=== PATIENT | female | born 1985 | race Caucasian/White ===

== ENCOUNTER 2018-05-03 10:27 | Emergency (ER) | payer BC ==
[2018-05-03 10:41] VITALS: BP 104/68
--- NOTE | 2018-05-03 11:05 | UC ---
Throat Pain/Nasal Tj HPI - HPI Summary HPI Summary: 32 yr old female with no pmh no recent meds, no ABX recently presents with ear fullness b/l, mil dsore throat, nasal congestion, chest congestion x 1 week, no improvement. + chills, body aches, denies fever. feels "in chest", - History of Current Complaint Chief Complaint: UCGeneralIllness Stated Complaint: COUGH CONGESTION Time Seen by Provider: 05/03/18 10:55 Hx Obtained From: Patient Hx Last Menstrual Period: no period ?: No Onset/Duration: Sudden Onset, Lasting Weeks Severity: Moderate Pain Intensity: 7 Pain Scale Used: 0-10 Numeric Cough: Nonproductive Associated Signs & Symptoms: Positive: Sinus Discomfort. Negative: Wheezing, Hoarseness - Allergies/Home Medications Allergies/Adverse Reactions: Allergies Allergy/AdvReac Type Severity Reaction Status Date / Time amoxicillin Allergy Rash Verified 05/03/18 10:34 Home Medications: Home Medications Cetirizine* [ZyrTEC 10 MG TAB*] 10 mg PO DAILY 05/03/18 [History Confirmed 05/03] Chlorphenir/Phenyleph/Aspirin [[place] Plus Cold Tab Eff] 1 tab PO ONCE 02/08 [History Confirmed 05/03/18] PMH/Surg Hx/FS Hx/Imm Hx Previously Healthy: Yes - Surgical History Surgical History: Yes Surgery Procedure, Year, and Place: wisdom teeth extraction, sinus cyst removal 2008 - Social History Alcohol Use: None Substance Use Type: None Smoking Status (MU): Never Smoked Tobacco Review of Systems All Other Systems Reviewed And Are Negative: Yes Constitutional: Positive: Chills, Fatigue ENT: Positive: Nasal Discharge, Sinus Congestion, Sinus Pain/Tenderness Respiratory: Positive: Cough Is Patient Immunocompromised?: No Physical Exam Triage Information Reviewed: Yes Appearance: No Pain Distress, Well-Nourished, Ill-Appearing - mild Vital Signs: Initial Vital Signs Temp 98.7 F 05/03/18 10:36 Pulse 99 05/03/18 10:36 Resp 18 05/03/18 10:36 BP 104/68 05/03/18 10:36 Pulse Ox 97 05/03/18 10:36 Eyes: Positive: Conjunctiva Clear ENT: Positive: Pharynx normal, TMs normal, Sinus tenderness - max b/l, Uvula midline. Negative: TM bulging, TM dull, TM red, Tonsillar swelling, Tonsillar exudate, Dental tenderness Neck: Positive: Supple, Nontender, No Lymphadenopathy Respiratory: Positive: Chest non-tender, Lungs clear, Normal breath sounds, No respiratory distress, No accessory muscle use. Negative: Respiratory distress, Crackles, Rhonchi, Stridor, Wheezing, Expiration Cardiovascular: Positive: RRR, No Murmur Neurological Exam: Normal Psychological Exam: Normal Skin Exam: Normal Throat Pain/Nasal Course/Dx - Course Course Of Treatment: sinusitis, abx given, fu with PCP - Differential Dx/Diagnosis Differential Diagnosis/HQI/PQRI: Sinusitis Provider Diagnosis: Sinusitis Discharge - Sign-Out/Discharge Documenting (check all that apply): Patient Departure All imaging exams completed and their final reports reviewed: No Studies - Discharge Plan Condition: Good Disposition: HOME Prescriptions: Azithromyxin JEVON (NF) [Z-Jevon (Zithromax) 250 mg tabs #6] 2 tab PO .TODAY, THEN 1 DAILY #6 tab Patient Education Materials: Sinusitis (ED) Referrals: No Primary Care Phys,NOPCP [Primary Care Provider] - Additional Instructions: - Antibiotics as directed - Increase fluid intake - Humidifier at night - Over the counter cough medication as needed - Over the counter/ Antihistamines for congestion - Motrin/ ibuprofen as needed for headache/ body aches - Billing Disposition and Condition Condition: GOOD Disposition: Home
== END 2018-05-03 11:31 | disposition home or self-care (01) ==
LOC: UCEAST 10:27
DX: J32.9 Chronic sinusitis, unspecified (principal); Z88.0 Allergy status to penicillin
CPT/HCPCS: 99212; G0463